=== PATIENT | male | born 1985 | race Caucasian/White ===

== ENCOUNTER 2024-11-08 23:55 | Emergency (ER) | payer MEDICAID ==
[~2024-11-08] VITALS: Ht 172.7 cm; Wt 79.4 kg
[2024-11-09 00:18] LABS: PLATELET COUNT (AUTO) 278 K/uL (150-450); RED BLOOD CELL COUNT(AUTO) 5.38 MIL/uL (4.5-6.0); RED CELL DISTRIBUTION WIDTH 12.3 % (11.5-15.0); WHITE BLOOD COUNT (AUTO) 6.5 K/uL (4.3-11.0)
[2024-11-09 00:27] LABS: CALCIUM, SERUM 9.0 mg/dL (8.5-10.1); CREATININE 1.1 mg/dL (0.6-1.3); SODIUM SERUM 141 mmol/L (136-145); UREA NITROGEN, BLOOD 16 mg/dL (7-18)
[2024-11-09 01:31] VITALS: BP 130/70; TEMP 98; O2SAT 98
== END 2024-11-09 01:32 | disposition home or self-care (01) ==
LOC: ER 11-09 00:03
DX: R00.2 Palpitations (principal); M10.9 Gout, unspecified; Z86.79 Personal history of other diseases of the circulatory system
CPT/HCPCS: 36415; 71045-TC; 80048-TC; 83735-TC; 84443-TC; 84484-TC; 85025-TC